=== PATIENT | male | born 1935 | race Caucasian/White ===

== ENCOUNTER 2019-03-09 12:15 | Day surgery (SDC) | payer MEDICARE, BC ==
[~2019-03-09] VITALS: Ht 167.6 cm; Wt 106.2 kg
[~2019-03-09 12:15] MED LIST: ALLERGY10 MG PO; Aspirin EC81 MG; COLE1 PO; Calcium 500 MG1 EACH; FLONASE ALLERG9.9 ML NS; FLUSAL2505 INH; FURO20 PO; Fish Oil300 MG PO; GLUCOSAMINE S1000 MG PO; IBUP600 PO; IBUP800 PO; Iron Supplemen325 MG PO; Micro-K10 MEQ; OMEP20ER PO; OXYACE10 PO; [UNRECOGNIZED DRUG - OTHER]
== END 2019-03-09 15:02 | disposition home or self-care (01) ==
LOC: ORSCSDS 12:15
PROVIDERS: Internal Medicine Gastroenterology
PROC: 0DB98ZX Excision of Duodenum, Via Natural or Artificial Opening Endoscopic, Diagnostic (ICD-10-PCS; principal; 2019-03-09 13:45)
PROC: 0DB58ZX Excision of Esophagus, Via Natural or Artificial Opening Endoscopic, Diagnostic (ICD-10-PCS; principal; 2019-03-09 13:45)
PROC: 0DBN8ZX Excision of Sigmoid Colon, Via Natural or Artificial Opening Endoscopic, Diagnostic (ICD-10-PCS; principal; 2019-03-09 13:45)
PROC: 0DBM8ZX Excision of Descending Colon, Via Natural or Artificial Opening Endoscopic, Diagnostic (ICD-10-PCS; principal; 2019-03-09 13:45)
DX: K22.70 Barrett's esophagus without dysplasia (principal); K29.80 Duodenitis without bleeding; K29.70 Gastritis, unspecified, without bleeding; K44.9 Diaphragmatic hernia without obstruction or gangrene; Z12.11 Encounter for screening for malignant neoplasm of colon; Z86.010 Personal history of colon polyps; D12.4 Benign neoplasm of descending colon; D12.5 Benign neoplasm of sigmoid colon; K57.30 Diverticulosis of large intestine without perforation or abscess without bleeding; Z87.891 Personal history of nicotine dependence; G47.33 Obstructive sleep apnea (adult) (pediatric); E66.01 Morbid (severe) obesity due to excess calories; Z68.39 Body mass index [BMI] 39.0-39.9, adult
CPT/HCPCS: 87081; 88305; J2250; J2704; J7120

== ENCOUNTER 2022-02-27 07:35 | Day surgery (SDC) | payer MEDICARE, BC ==
[~2022-02-27] VITALS: Ht 167.6 cm; Wt 116.3 kg
--- NOTE | 2022-02-27 08:15 | NUR ---
02/27/22 0815 RITESH BORJAS TETRACAINE DROP INSTILLED AT 0810. PLEDGETT INSERTED AT 0812
== END 2022-02-27 09:43 | disposition home or self-care (01) ==
LOC: ORSCSDS 07:35
PROVIDERS: Ophthalmology
PROC: 08RJ3JZ Replacement of Right Lens with Synthetic Substitute, Percutaneous Approach (ICD-10-PCS; principal; 2022-02-27 09:00)
DX: H25.13 Age-related nuclear cataract, bilateral (principal); I10 Essential (primary) hypertension; K21.9 Gastro-esophageal reflux disease without esophagitis; G47.33 Obstructive sleep apnea (adult) (pediatric); E66.01 Morbid (severe) obesity due to excess calories; Z68.41 Body mass index [BMI] 40.0-44.9, adult; Z87.891 Personal history of nicotine dependence; Z79.899 Other long term (current) drug therapy
CPT/HCPCS: J2001; J2250; J3010; J3301; J7040; V2632

== ENCOUNTER 2022-03-20 07:31 | Day surgery (SDC) | payer MEDICARE, BC ==
[~2022-03-20] VITALS: Ht 167.6 cm; Wt 116.9 kg
== END 2022-03-20 09:31 | disposition home or self-care (01) ==
LOC: ORSCSDS 07:31
PROVIDERS: Ophthalmology
PROC: 08RK3JZ Replacement of Left Lens with Synthetic Substitute, Percutaneous Approach (ICD-10-PCS; principal; 2022-03-20 09:00)
DX: H25.13 Age-related nuclear cataract, bilateral (principal); G47.33 Obstructive sleep apnea (adult) (pediatric); K21.9 Gastro-esophageal reflux disease without esophagitis; R06.02 Shortness of breath; E66.01 Morbid (severe) obesity due to excess calories; Z68.41 Body mass index [BMI] 40.0-44.9, adult; Z87.891 Personal history of nicotine dependence; Z79.899 Other long term (current) drug therapy
CPT/HCPCS: J2001; J2250; J3010; J3301; J7040; V2632

== ENCOUNTER 2023-09-06 05:33 | Emergency (ER) | payer MEDICARE, BC ==
[~2023-09-06] VITALS: Ht 167.6 cm; Wt 111.6 kg
[2023-09-06 06:08] VITALS: BP 152/80
== END 2023-09-06 07:43 | disposition home or self-care (01) ==
LOC: ER 05:33
DX: M66.0 Rupture of popliteal cyst (principal); Z79.899 Other long term (current) drug therapy; E78.5 Hyperlipidemia, unspecified; Z87.891 Personal history of nicotine dependence
CPT/HCPCS: 76882; 99283-25; A9270